=== PATIENT | female | born 1940 | race Caucasian/White ===

== ENCOUNTER 2022-03-26 11:30 | Inpatient (IN) | payer MEDICARE, BC ==
[2022-03-26] MEDS ORDERED: Midazolam HCl 2 mg/2 ml Vial ONE (14:33)
[2022-03-26] MEDS ORDERED: Dextrose 5% in Water 1,000 ML IV PRN (17:20)
[2022-03-26] MEDS ORDERED: hydrALAZINE 20 MG/ML VIAL SLOW IVP PRN (17:20)
[2022-03-26] MEDS ORDERED: Dextrose 50% Abboject 50 ML SYRINGE SLOW IVP PRN (17:20)
[2022-03-26] MEDS ORDERED: Ondansetron PF 4 MG/2 ML Vial IVP PRN (17:20)
[2022-03-26] MEDS ORDERED: traMADol HCl 50 MG TAB PO PRN (17:24)
[2022-03-26] MEDS ORDERED: Cyclobenzaprine 10 MG TAB PO PRN (17:24)
[2022-03-26 17:43] LABS: #Basophils 0.1 thou/uL (0.0-0.2); #Eosinphils 0.2 thou/uL (0.0-0.7); #Lymphocytes 2.7 thou/uL (1.20-3.40); #Monocytes 1.1 thou/uL (0.11-0.59); #Neutrophils 7.8 thou/uL (1.40-6.50); %Basophils 0.6 % (0.0-1.0); %Eosinophils 1.5 % (0.0-10.0); %Lymphocytes 22.6 % (21.0-51.0); %Monocytes 9.2 % (0.0-10.0); Hemoglobin 14.5 g/dL (12.0-16.0); Mean Corpuscular HGB CONC 32.3 g/dL (32.0-36.0); Mean Corpuscular Hemoglobin 31.1 pg (27.0-31.0); Mean Corpuscular Volume 96.2 fl (78.0-98.0); Mean Platelet Volume 7.5 fL (7.4-10.4); Platelet Count 283 10x3/uL (130-400); RBC Distribution Width 11.8 % (11.5-14.5); Red Blood Cell (RBC) Count 4.68 mill/uL (4.20-5.40); White Blood Cell (WBC) Count 11.8 10x3/uL (4.8-10.8)
[2022-03-26 18:03] LABS: ALT (SGPT) Less than 7 U/L (8-55); AST (SGOT) 15 U/L (5-34); Albumin 3.5 g/dL (3.4-4.8); Alkaline Phosphatase 76 U/L (40-110); Anion Gap 15 mmol/L (10-20); BUN (Urea Nitrogen) 11 mg/dL (9.8-20.1); Bilirubin, Total 0.6 mg/dL (0.2-1.2); Calc. Creatinine Clearance 0 mL/min (70-130); Calcium 9.1 mg/dL (7.8-10.44); Carbon Dioxide 25 mmol/L (23-31); Chloride 103 mmol/L (98-107); Estimated GFR 88; Globulin 3.7 g/dL (2.4-3.5); Glucose 109 mg/dL (83-110); Magnesium 2.2 mg/dL (1.6-2.6); Phosphorus 3.3 mg/dL (2.3-4.7); Potassium 3.6 mmol/L (3.5-5.1); Protein, Total 7.2 g/dL (5.8-8.1); Sodium 139 mmol/L (136-145)
[2022-03-26] MEDS ORDERED: Haloperidol Lactate 5 MG/ML VIAL IM SCH (18:45)
[2022-03-26] MEDS ORDERED: diphenhydrAMINE 50 MG/ML VIAL IVP SCH (19:15)
[2022-03-26] MEDS: Morphine 2 MG/ML VIAL SLOW IVP PRN ×2 (19:17→19:23)
[2022-03-26] MEDS ORDERED: Metoprolol Tartrate 25 MG TAB PO SCH (21:00)
[2022-03-26] MEDS: Famotidine 20 MG TAB PO SCH (22:37)
[2022-03-26] MEDS: Acetaminophen 500 MG TAB PO SCH (22:37)
[2022-03-26] MEDS: traMADol HCl 50 MG TAB PO SCH (22:37)
[2022-03-26] MEDS: Senokot S 8.6-50 MG TAB PO SCH (22:38)
[2022-03-26] MEDS ORDERED: Ziprasidone 20 MG VIAL IM SCH (22:45)
[2022-03-26] MEDS ORDERED: Sterile Water 10 ML ONE (22:50)
[2022-03-27] MEDS: Acetaminophen 500 MG TAB PO SCH ×5 (01:20→22:56)
[2022-03-27] MEDS: traMADol HCl 50 MG TAB PO SCH ×5 (01:20→22:57)
[2022-03-27] MEDS: Morphine 2 MG/ML VIAL SLOW IVP PRN (02:58)
[2022-03-27] MEDS ORDERED: Sterile Water 10 ML VIAL FS PRN (03:45)
[2022-03-27] MEDS ORDERED: Ziprasidone 20 MG VIAL IM SCH (04:00)
[2022-03-27 05:57] LABS: #Eosinphils 0.1 thou/uL (0.0-0.7); #Lymphocytes 1.7 thou/uL (1.20-3.40); #Monocytes 1.3 thou/uL (0.11-0.59); %Basophils 0.3 % (0.0-1.0); %Eosinophils 0.5 % (0.0-10.0); %Lymphocytes 12.7 % (21.0-51.0); %Monocytes 9.8 % (0.0-10.0); %Neutrophils 76.6 % (42.0-75.0); Hemoglobin 13.8 g/dL (12.0-16.0); Mean Corpuscular HGB CONC 32.8 g/dL (32.0-36.0); Mean Corpuscular Hemoglobin 31.4 pg (27.0-31.0); Mean Corpuscular Volume 95.6 fl (78.0-98.0); Mean Platelet Volume 7.7 fL (7.4-10.4); Platelet Count 292 10x3/uL (130-400); RBC Distribution Width 11.7 % (11.5-14.5); Red Blood Cell (RBC) Count 4.39 mill/uL (4.20-5.40)
[2022-03-27 06:16] LABS: Anion Gap 13 mmol/L (10-20); BUN (Urea Nitrogen) 14 mg/dL (9.8-20.1); Calc. Creatinine Clearance 28 mL/min (70-130); Calcium 9.1 mg/dL (7.8-10.44); Carbon Dioxide 25 mmol/L (23-31); Chloride 103 mmol/L (98-107); Estimated GFR 88; Glucose 169 mg/dL (83-110); Magnesium 2.1 mg/dL (1.6-2.6); Phosphorus 3.2 mg/dL (2.3-4.7); Potassium 3.4 mmol/L (3.5-5.1); Sodium 138 mmol/L (136-145)
[2022-03-27] MEDS ORDERED: fentaNYL PF 100 MCG/2 ML SYRINGE ONE (07:22)
[2022-03-27] MEDS ORDERED: Insulin Regular 300 UNITS/3 ML VIAL SC PRN ×2 (07:48)
[2022-03-27] MEDS ORDERED: Potassium Phosphate 30 MMOL in Sodium Chloride 0.9% 250 ML 250 ML IVPB SCH (08:00)
[2022-03-27] MEDS ORDERED: Levothyroxine Sodium 125 MCG TAB PO SCH (08:00)
[2022-03-27] MEDS ORDERED: Clindamycin/D5W 600 mg/50 ml Premix Bag ONE (08:01)
[2022-03-27] MEDS ORDERED: Ondansetron PF 4 MG/2 ML Vial ONE (08:18)
[2022-03-27] MEDS ORDERED: PROPOFOL 200 MG/20 ML VIAL ONE (08:18)
[2022-03-27] MEDS ORDERED: Lidocaine 1% PF 5 ML VIAL ONE (08:18)
[2022-03-27] MEDS ORDERED: Glycopyrrolate 0.2 MG/ML 5 ML SYRINGE ONE (08:18)
[2022-03-27] MEDS ORDERED: Dexamethasone 20 MG/5 ML VIAL ONE (08:18)
[2022-03-27] MEDS ORDERED: Labetalol HCl 100 MG/20 ML VIAL ONE (08:18)
[2022-03-27] MEDS ORDERED: NEOSTIGMINE 3 MG/3 ML SYR 3 MG/3 ML SYRINGE ONE (08:18)
[2022-03-27] MEDS ORDERED: ePHEDrine 50 MG/ML VIAL ONE (08:18)
[2022-03-27] MEDS ORDERED: Succinylcholine Chloride 100 MG/5 ML SYRINGE FS ONE (08:18)
[2022-03-27] MEDS ORDERED: Rocuronium Bromide 10 MG/ML (10ML VIAL) ONE (08:18)
[2022-03-27] MEDS ORDERED: Ondansetron HCl/PF 4 MG/2 ML Vial IVP PRN (08:56)
[2022-03-27] MEDS ORDERED: Bupivacaine HCl 0.5%/Epinephrine 1:200,000/PF 30 ml Vial ONE (09:09)
[2022-03-27] MEDS ORDERED: TETANUS, DIPHTHERIA TOX,ADULT (TDVAX) 0.5 ML VIAL IM ONE (09:37)
[2022-03-27] MEDS ORDERED: Communication Order-Pharmacy FS SCH (09:45)
[2022-03-27] MEDS: Polyethylene Glycol 3350 17 GM Packet PO SCH (11:54)
[2022-03-27] MEDS: Potassium Chloride 10 MEQ TAB PO SCH ×2 (11:54→17:00)
[2022-03-27] MEDS: Senokot S 8.6-50 MG TAB PO SCH ×2 (11:54→19:43)
[2022-03-27] MEDS: Gabapentin 100 MG CAP PO SCH ×3 (11:55→19:42)
[2022-03-27] MEDS: QUEtiapine 100 MG TAB PO SCH ×2 (11:56→19:43)
[2022-03-27] MEDS: Ketorolac Tromethamine 30 MG/ML VIAL IVP SCH ×3 (12:01→22:58)
[2022-03-27] MEDS: Famotidine 20 MG TAB PO SCH ×2 (13:08→19:43)
[2022-03-27 14:50] LABS: Bacteria/HPF None Seen HPF (None Seen); Bilirubin Negative (Negative); Blood, Urine 1+ (Negative); CAUTI Indications for Culture Alt mental st,lethar; Clarity Clear (Clear); Glucose, Urine (Dipstick) Normal (Negative); Ketone, Urine 20 mg/dL (Negative); Leukocyte Negative Leu/uL (Negative); Nitrite Negative (Negative); Protein, Urine (Dipstick) 10 mg/dL (Neg-Trace); Specific Gravity, Urine 1.021 (1.002-1.036); Squamous Epithelial 0-3 HPF (0-3); Urobilinogen Normal mg/dL (Less than 2); WBC/HPF 0-3 HPF (0-3)
[2022-03-27 14:55] LABS: Urine Culture Reflex No No
[2022-03-27] MEDS: Clindamycin/D5W 600 MG in Premix Bag 1 BAG IVPB SCH ×2 (18:19→22:56)
[2022-03-27] MEDS: traZODone HCl 50 MG TAB PO SCH (19:43)
[2022-03-27] MEDS ORDERED: Aspirin 81 mg Enteric Coated Tablet PO SCH (21:00)
[2022-03-28] MEDS: Acetaminophen 500 MG TAB PO SCH ×5 (01:07→23:34)
[2022-03-28] MEDS: traMADol HCl 50 MG TAB PO SCH ×5 (01:08→23:34)
[2022-03-28] MEDS: Ketorolac Tromethamine 30 MG/ML VIAL IVP SCH (05:12)
[2022-03-28 05:57] LABS: #Lymphocytes 2.4 thou/uL (1.20-3.40); #Monocytes 1.7 thou/uL (0.11-0.59); #Neutrophils 13.3 thou/uL (1.40-6.50); %Basophils 0.1 % (0.0-1.0); %Eosinophils 0.1 % (0.0-10.0); %Lymphocytes 13.6 % (21.0-51.0); %Monocytes 9.9 % (0.0-10.0); %Neutrophils 76.2 % (42.0-75.0); Hemoglobin 12.7 g/dL (12.0-16.0); Mean Corpuscular HGB CONC 32.6 g/dL (32.0-36.0); Mean Corpuscular Hemoglobin 31.3 pg (27.0-31.0); Mean Corpuscular Volume 95.9 fl (78.0-98.0); Mean Platelet Volume 7.8 fL (7.4-10.4); Platelet Count 327 10x3/uL (130-400); RBC Distribution Width 11.7 % (11.5-14.5); Red Blood Cell (RBC) Count 4.05 mill/uL (4.20-5.40); White Blood Cell (WBC) Count 17.5 10x3/uL (4.8-10.8)
[2022-03-28] MEDS: Levothyroxine Sodium 125 MCG TAB PO SCH (05:59)
[2022-03-28 06:53] LABS: Anion Gap 14 mmol/L (10-20); BUN (Urea Nitrogen) 23 mg/dL (9.8-20.1); Calc. Creatinine Clearance 24 mL/min (70-130); Calcium 9.1 mg/dL (7.8-10.44); Carbon Dioxide 25 mmol/L (23-31); Chloride 103 mmol/L (98-107); Estimated GFR 77; Glucose 153 mg/dL (83-110); Magnesium 2.2 mg/dL (1.6-2.6); Phosphorus 4.4 mg/dL (2.3-4.7); Potassium 4.1 mmol/L (3.5-5.1); Sodium 138 mmol/L (136-145)
[2022-03-28] MEDS ORDERED: Non-Formulary Item 1 EACH (Hydrochlorothiazide [Hydrochlorothiazide] 12.5 MG Tablet) PO SCH (09:00)
[2022-03-28] MEDS: Famotidine 20 MG TAB PO SCH (09:43)
[2022-03-28] MEDS: Aspirin 81 mg Enteric Coated Tablet PO SCH ×2 (09:43→21:01)
[2022-03-28] MEDS: Hydrochlorothiazide 25 MG TAB PO SCH (09:43)
[2022-03-28] MEDS: Gabapentin 100 MG CAP PO SCH ×3 (09:44→21:07)
[2022-03-28] MEDS: Polyethylene Glycol 3350 17 GM Packet PO SCH (09:45)
[2022-03-28] MEDS: Potassium Chloride 10 MEQ TAB PO SCH ×2 (09:45→16:27)
[2022-03-28] MEDS: QUEtiapine 100 MG TAB PO SCH ×2 (09:45→21:08)
[2022-03-28] MEDS: Lisinopril 10 MG TAB PO SCH (09:45)
[2022-03-28] MEDS: Senokot S 8.6-50 MG TAB PO SCH ×2 (09:45→21:08)
[2022-03-28] MEDS: traZODone HCl 50 MG TAB PO SCH (21:09)
[2022-03-29 05:42] LABS: #Eosinphils 0.3 thou/uL (0.0-0.7); #Lymphocytes 2.2 thou/uL (1.20-3.40); #Monocytes 1.1 thou/uL (0.11-0.59); #Neutrophils 8.5 thou/uL (1.40-6.50); %Basophils 0.3 % (0.0-1.0); %Eosinophils 2.4 % (0.0-10.0); %Monocytes 8.9 % (0.0-10.0); %Neutrophils 70.4 % (42.0-75.0); Hemoglobin 11.5 g/dL (12.0-16.0); Mean Corpuscular HGB CONC 31.6 g/dL (32.0-36.0); Mean Corpuscular Volume 98.1 fl (78.0-98.0); Mean Platelet Volume 7.5 fL (7.4-10.4); Platelet Count 307 10x3/uL (130-400); RBC Distribution Width 11.8 % (11.5-14.5); Red Blood Cell (RBC) Count 3.71 mill/uL (4.20-5.40); White Blood Cell (WBC) Count 12.1 10x3/uL (4.8-10.8)
[2022-03-29] MEDS: Acetaminophen 500 MG TAB PO SCH ×4 (05:55→23:07)
[2022-03-29] MEDS: Levothyroxine Sodium 125 MCG TAB PO SCH (05:56)
[2022-03-29] MEDS: traMADol HCl 50 MG TAB PO SCH ×4 (05:56→23:07)
[2022-03-29 06:10] LABS: Anion Gap 11 mmol/L (10-20); BUN (Urea Nitrogen) 25 mg/dL (9.8-20.1); Calc. Creatinine Clearance 28 mL/min (70-130); Carbon Dioxide 27 mmol/L (23-31); Chloride 104 mmol/L (98-107); Potassium 3.8 mmol/L (3.5-5.1); Sodium 138 mmol/L (136-145)
[2022-03-29 06:11] LABS: Calcium 8.5 mg/dL (7.8-10.44); Estimated GFR 88; Glucose 154 mg/dL (83-110); Magnesium 2.1 mg/dL (1.6-2.6)
[2022-03-29] MEDS: Senokot S 8.6-50 MG TAB PO SCH ×2 (09:04→21:16)
[2022-03-29] MEDS: Gabapentin 100 MG CAP PO SCH ×3 (09:04→21:16)
[2022-03-29] MEDS: Polyethylene Glycol 3350 17 GM Packet PO SCH (09:04)
[2022-03-29] MEDS: Hydrochlorothiazide 25 MG TAB PO SCH (09:05)
[2022-03-29] MEDS: Potassium Chloride 10 MEQ TAB PO SCH ×2 (09:05→18:03)
[2022-03-29] MEDS: Famotidine 20 MG TAB PO SCH (09:05)
[2022-03-29] MEDS: Aspirin 81 mg Enteric Coated Tablet PO SCH ×2 (09:05→21:16)
[2022-03-29] MEDS: QUEtiapine 100 MG TAB PO SCH ×2 (09:05→21:16)
[2022-03-29] MEDS: Lisinopril 10 MG TAB PO SCH (09:05)
[2022-03-29] MEDS ORDERED: Lactated Ringer's 500 ML IV SCH (17:45)
[2022-03-29] MEDS: traZODone HCl 50 MG TAB PO SCH (21:16)
[2022-03-30] MEDS: Acetaminophen 500 MG TAB PO SCH ×5 (05:31→23:51)
[2022-03-30] MEDS: Levothyroxine Sodium 125 MCG TAB PO SCH (05:31)
[2022-03-30] MEDS: traMADol HCl 50 MG TAB PO SCH ×3 (05:32→18:26)
[2022-03-30] MEDS: Lisinopril 10 MG TAB PO SCH (10:14)
[2022-03-30] MEDS: Senokot S 8.6-50 MG TAB PO SCH ×2 (10:14→21:25)
[2022-03-30] MEDS: QUEtiapine 100 MG TAB PO SCH ×2 (10:15→21:25)
[2022-03-30] MEDS: Hydrochlorothiazide 25 MG TAB PO SCH (10:16)
[2022-03-30] MEDS: Gabapentin 100 MG CAP PO SCH ×3 (10:16→21:25)
[2022-03-30] MEDS: Potassium Chloride 10 MEQ TAB PO SCH ×2 (10:17→18:22)
[2022-03-30] MEDS: Famotidine 20 MG TAB PO SCH (10:17)
[2022-03-30] MEDS: Aspirin 81 mg Enteric Coated Tablet PO SCH ×2 (10:17→21:25)
[2022-03-30] MEDS: Polyethylene Glycol 3350 17 GM Packet PO SCH (12:28)
[2022-03-30] MEDS ORDERED: Acetaminophen/Codeine 30-300mg Tablet PO PRN (17:36)
[2022-03-30] MEDS: Acetaminophen/Codeine 30-300mg Tablet PO SCH ×2 (18:21→23:52)
[2022-03-30] MEDS: traZODone HCl 50 MG TAB PO SCH (21:25)
[2022-03-31] MEDS: Acetaminophen 500 MG TAB PO SCH ×3 (06:01→18:11)
[2022-03-31] MEDS: Acetaminophen/Codeine 30-300mg Tablet PO SCH ×3 (06:02→18:17)
[2022-03-31] MEDS: Levothyroxine Sodium 125 MCG TAB PO SCH (06:02)
[2022-03-31] MEDS: Aspirin 81 mg Enteric Coated Tablet PO SCH ×2 (08:07→20:52)
[2022-03-31] MEDS: Hydrochlorothiazide 25 MG TAB PO SCH (08:07)
[2022-03-31] MEDS: Senokot S 8.6-50 MG TAB PO SCH ×2 (08:07→20:51)
[2022-03-31] MEDS: Famotidine 20 MG TAB PO SCH (08:07)
[2022-03-31] MEDS: Gabapentin 100 MG CAP PO SCH ×3 (08:07→20:51)
[2022-03-31] MEDS: Lisinopril 10 MG TAB PO SCH (08:07)
[2022-03-31] MEDS: Potassium Chloride 10 MEQ TAB PO SCH ×2 (08:08→18:11)
[2022-03-31] MEDS: QUEtiapine 100 MG TAB PO SCH ×2 (08:08→20:52)
[2022-03-31] MEDS: Polyethylene Glycol 3350 17 GM Packet PO SCH (10:06)
[2022-03-31] MEDS: traZODone HCl 50 MG TAB PO SCH (20:51)
[2022-04-01] MEDS: Acetaminophen 500 MG TAB PO SCH ×3 (01:44→13:48)
[2022-04-01] MEDS: Acetaminophen/Codeine 30-300mg Tablet PO SCH ×3 (01:45→13:48)
[2022-04-01] MEDS: Levothyroxine Sodium 125 MCG TAB PO SCH (06:41)
[2022-04-01] MEDS: Famotidine 20 MG TAB PO SCH (08:51)
[2022-04-01] MEDS: Hydrochlorothiazide 25 MG TAB PO SCH (08:51)
[2022-04-01] MEDS: QUEtiapine 100 MG TAB PO SCH (08:51)
[2022-04-01] MEDS: Potassium Chloride 10 MEQ TAB PO SCH (08:52)
[2022-04-01] MEDS: Aspirin 81 mg Enteric Coated Tablet PO SCH (08:52)
[2022-04-01] MEDS: Gabapentin 100 MG CAP PO SCH ×2 (08:52→15:43)
[2022-04-01] MEDS: Lisinopril 10 MG TAB PO SCH (08:52)
[2022-04-01] MEDS: Senokot S 8.6-50 MG TAB PO SCH (08:54)
[2022-04-01] MEDS: Polyethylene Glycol 3350 17 GM Packet PO SCH (08:54)
[2022-04-01 09:24] VITALS: TEMP 98.3
[2022-04-01] MEDS ORDERED: Lisinopril 10 MG TAB PO SCH ×3 (11:41→12:15)
[2022-04-01 13:46] VITALS: BP 142/72
[2022-04-02] MEDS ORDERED: Lisinopril 10 MG TAB PO SCH (09:00)
== END 2022-04-01 16:35 | DRG 481 ==
LOC: ERS 11:30 → SJJU 16:53 → SURG A 19:08
PROVIDERS: ADMIT Surgery; ATTEND Surgery
PROC: 0QS604Z Reposition Right Upper Femur with Internal Fixation Device, Open Approach (ICD-10-PCS; principal; 2022-03-27)
DX: S72.011A Unspecified intracapsular fracture of right femur, initial encounter for closed fracture (principal); F02.811 Dementia in other diseases classified elsewhere, unspecified severity, with agitation; Z20.822 Contact with and (suspected) exposure to COVID-19; G30.9 Alzheimer's disease, unspecified; E03.9 Hypothyroidism, unspecified; K21.9 Gastro-esophageal reflux disease without esophagitis; I10 Essential (primary) hypertension; Z66 Do not resuscitate; G47.00 Insomnia, unspecified; E78.5 Hyperlipidemia, unspecified; W18.30XA Fall on same level, unspecified, initial encounter; E11.9 Type 2 diabetes mellitus without complications; G89.29 Other chronic pain; E87.6 Hypokalemia; F41.9 Anxiety disorder, unspecified; Z79.890 Hormone replacement therapy; Z88.0 Allergy status to penicillin; Z88.2 Allergy status to sulfonamides; Z79.84 Long term (current) use of oral hypoglycemic drugs; Z79.899 Other long term (current) drug therapy; Y92.129 Unspecified place in nursing home as the place of occurrence of the external cause
CPT/HCPCS: 36415; 36416; 71045; 72170; 72192; 80048; 80053; 81001; 83735; 84100; 85025; 93005; 96374; C1713; C1769; G0390; J1100; J1200; J1630; J1815; J1885; J2250; J2272; J2405; J2704; J3486; J3490; J7050; J7120; U0003; U0005

== ENCOUNTER 2022-04-15 10:29 | Outpatient (CLI) | payer MEDICARE, BC ==
[2022-04-15 11:39] LABS: Hemoglobin 12.1 g/dL (12.0-15.5); Mean Corpuscular HGB CONC 32.6 g/dL (32.0-36.0); Mean Corpuscular Hemoglobin 31.9 pg (27.0-33.0); Mean Corpuscular Volume 97.9 fl (81.6-98.3); Mean Platelet Volume 9.7 fl (7.4-10.4); Platelet Count 389 10x3/uL (150-450); RBC Distribution Width 13.2 % (11.5-14.5); Red Blood Cell (RBC) Count 3.79 10x6/uL (3.90-5.03); White Blood Cell (WBC) Count 12.2 10x3/uL (3.5-10.5)
[2022-04-15 11:53] LABS: Prothrombin Time 10.6 sec (9.5-12.1)
[2022-04-15 11:54] LABS: Anion Gap 14 mmol/L (10-20); BUN (Urea Nitrogen) 21 mg/dL (9.8-20.1); Calc. Creatinine Clearance 0 mL/min (70-130); Calcium 9.3 mg/dL (7.8-10.44); Carbon Dioxide 29 mmol/L (23-31); Chloride 99 mmol/L (98-107); Estimated GFR 89; Glucose 126 mg/dL (83-110); Potassium 3.8 mmol/L (3.5-5.1); Sodium 138 mmol/L (136-145)
== END 2022-04-15 10:30 | disposition home or self-care (01) ==
LOC: LABBT 10:29
PROVIDERS: ATTEND Orthopaedic Surgery
DX: Z01.818 Encounter for other preprocedural examination (principal)
CPT/HCPCS: 80048; 85027; 85610; 87081; 93005; 93010

== ENCOUNTER 2022-05-03 06:59 | Inpatient (IN) | payer MEDICARE, BC ==
[2022-05-02 09:41] VITALS: BMI 24.4
[2022-05-03] MEDS ORDERED: Neomycin-Polymyxin 1 ML AMP ONE (11:50)
[2022-05-03 12:03] LABS: SARS-CoV-2 NAA Rapid Test Not Detected (NotDetected)
[2022-05-03] MEDS ORDERED: Clindamycin/D5W 900 mg/50 ml Premix Bag ONE (12:19)
[2022-05-03] MEDS ORDERED: fentaNYL PF 100 MCG/2 ML SYRINGE ONE (12:20)
[2022-05-03] MEDS ORDERED: Ondansetron HCl/PF 4 MG/2 ML Vial IVP PRN (12:39)
[2022-05-03] MEDS ORDERED: Promethazine HCl 25 MG/ML VIAL IM PRN (12:39)
[2022-05-03] MEDS ORDERED: ePHEDrine 50 MG/ML VIAL ONE (12:50)
[2022-05-03] MEDS ORDERED: NEOSTIGMINE 3 MG/3 ML SYR 3 MG/3 ML SYRINGE ONE (12:50)
[2022-05-03] MEDS ORDERED: Rocuronium Bromide 10 MG/ML (10ML VIAL) ONE (12:50)
[2022-05-03] MEDS ORDERED: Glycopyrrolate 0.2 MG/ML 5 ML SYRINGE ONE (12:50)
[2022-05-03] MEDS ORDERED: Ondansetron PF 4 MG/2 ML Vial ONE (12:50)
[2022-05-03] MEDS ORDERED: PROPOFOL 200 MG/20 ML VIAL ONE (12:50)
[2022-05-03] MEDS ORDERED: Dexamethasone 20 MG/5 ML VIAL ONE (12:50)
[2022-05-03] MEDS ORDERED: Tranexamic Acid 1,000 MG/10 ML VIAL ONE (12:53)
[2022-05-03] MEDS ORDERED: Bupivacaine HCl 0.5%/Epinephrine 1:200,000/PF 30 ml Vial ONE (13:49)
[2022-05-03] MEDS ORDERED: Milk Of Magnesia 30 ML UDCUP PO PRN (14:06)
[2022-05-03] MEDS ORDERED: Bisacodyl 10 MG SUPP PR PRN (14:06)
[2022-05-03] MEDS ORDERED: Ondansetron ODT 4 MG TAB PO PRN (14:06)
[2022-05-03] MEDS ORDERED: Ondansetron PF 4 MG/2 ML Vial IVP PRN (14:06)
[2022-05-03] MEDS ORDERED: Cepastat Lozenges 1 LOZ PO PRN (14:06)
[2022-05-03] MEDS ORDERED: traMADol HCl 50 MG TAB PO PRN (14:06)
[2022-05-03] MEDS ORDERED: Fentanyl 100 MCG/2 ML VIAL ONE (14:52)
[2022-05-03] MEDS: traZODone HCl 50 MG TAB PO SCH ×2 (18:14→20:13)
[2022-05-03] MEDS: Gabapentin 100 MG CAP PO SCH (18:14)
[2022-05-03] MEDS: Ketorolac Tromethamine 30 MG/ML VIAL IM SCH (18:22)
[2022-05-03] MEDS: Clindamycin/D5W 900 MG in Premix Bag 1 BAG IVPB SCH (18:22)
[2022-05-03] MEDS: Aspirin 325 MG TAB PO SCH (20:13)
[2022-05-03] MEDS: QUEtiapine 100 MG TAB PO SCH (20:14)
[2022-05-03] MEDS: Famotidine 20 MG TAB PO SCH (20:30)
[2022-05-03] MEDS: Divalproex Sodium DR 500 MG TAB PO SCH (20:31)
[2022-05-03] MEDS: Senokot S 8.6-50 MG TAB PO SCH (20:32)
[2022-05-03] MEDS ORDERED: metFORMIN XR 500 MG TAB PO SCH (21:00)
[2022-05-03] MEDS ORDERED: Sodium Chloride 0.9% 500 ML IV SCH (23:45)
[2022-05-04 00:23] LABS: Hemoglobin 9.5 g/dL (12.0-16.0); Mean Corpuscular HGB CONC 32.9 g/dL (32.0-36.0); Mean Corpuscular Hemoglobin 32.9 pg (27.0-31.0); Platelet Count 360 10x3/uL (130-400); RBC Distribution Width 12.9 % (11.5-14.5); Red Blood Cell (RBC) Count 2.88 mill/uL (4.20-5.40); White Blood Cell (WBC) Count 27.6 10x3/uL (4.8-10.8)
[2022-05-04] MEDS ORDERED: Acetaminophen 650 MG Suppository PR PRN (00:24)
[2022-05-04] MEDS ORDERED: Acetaminophen 325 MG TAB PO PRN (00:24)
[2022-05-04] MEDS: Clindamycin/D5W 900 MG in Premix Bag 1 BAG IVPB SCH (00:28)
[2022-05-04] MEDS: Ketorolac Tromethamine 30 MG/ML VIAL IM SCH ×4 (00:28→17:31)
[2022-05-04 00:29] LABS: ALT (SGPT) 21 U/L (8-55); AST (SGOT) 29 U/L (5-34); Albumin 2.3 g/dL (3.4-4.8); Alkaline Phosphatase 94 U/L (40-110); Anion Gap 14 mmol/L (10-20); BUN (Urea Nitrogen) 21 mg/dL (9.8-20.1); Bilirubin, Total 0.7 mg/dL (0.2-1.2); Calc. Creatinine Clearance 50 mL/min (70-130); Calcium 8.2 mg/dL (7.8-10.44); Carbon Dioxide 27 mmol/L (23-31); Chloride 102 mmol/L (98-107); Estimated GFR 76; Globulin 2.7 g/dL (2.4-3.5); Glucose 168 mg/dL (83-110); Magnesium 1.7 mg/dL (1.6-2.6); Potassium 4.4 mmol/L (3.5-5.1); Sodium 139 mmol/L (136-145)
[2022-05-04 00:40] LABS: Band 24 % (5-11); Hypochromia SLIGHT = 6-15 cells (100X) (0-5/hpf); Lymphocytes 5 % (21-51); MDiff Complete? YES; Macrocytosis SLIGHT = 6-15 cells (100X) (0-5/hpf); Monocytes 6 % (0-10); Neutrophil 63 % (42-75); Platelet Morphology Comment Appears Adequate; Reactive Lymphocytes 2 % (0-10)
[2022-05-04] MEDS ORDERED: Dextrose 5% in Water 1,000 ML IV PRN (00:49)
[2022-05-04] MEDS ORDERED: HumaLOG 300 UNITS/3 ML VIAL SC PRN ×2 (00:49)
[2022-05-04] MEDS ORDERED: Dextrose 50% Abboject 50 ML SYRINGE SLOW IVP PRN (00:49)
[2022-05-04 01:03] LABS: Hemoglobin A1c 5.7 % (4.0-6.0)
[2022-05-04] MEDS: Sodium Chloride 0.9% 1,000 ML IV SCH ×2 (04:16→17:34)
[2022-05-04] MEDS: Levothyroxine Sodium 125 MCG TAB PO SCH (05:36)
[2022-05-04 07:23] LABS: Hemoglobin 8.6 g/dL (12.0-16.0); Mean Corpuscular HGB CONC 31.6 g/dL (32.0-36.0); Mean Corpuscular Hemoglobin 32.1 pg (27.0-31.0); Mean Platelet Volume 7.5 fL (7.4-10.4); Platelet Count 330 10x3/uL (130-400); Red Blood Cell (RBC) Count 2.68 mill/uL (4.20-5.40); White Blood Cell (WBC) Count 25.1 10x3/uL (4.8-10.8)
[2022-05-04] MEDS: Hydrochlorothiazide 25 MG TAB PO SCH ×2 (09:36→09:45)
[2022-05-04] MEDS: Famotidine 20 MG TAB PO SCH ×2 (09:37→20:32)
[2022-05-04] MEDS: Senokot S 8.6-50 MG TAB PO SCH ×2 (09:37→20:32)
[2022-05-04] MEDS: Gabapentin 100 MG CAP PO SCH ×3 (09:37→15:44)
[2022-05-04] MEDS: Ferrous Gluconate 324 MG TAB PO SCH ×2 (09:37→20:32)
[2022-05-04] MEDS: Aspirin 325 MG TAB PO SCH ×2 (09:37→20:31)
[2022-05-04] MEDS: Divalproex Sodium DR 500 MG TAB PO SCH ×2 (09:38→20:32)
[2022-05-04] MEDS: Multivitamin W/ Minerals 1 TAB PO SCH (09:38)
[2022-05-04] MEDS: QUEtiapine 100 MG TAB PO SCH ×3 (09:38→20:32)
[2022-05-04] MEDS: traZODone HCl 50 MG TAB PO SCH ×4 (09:38→20:31)
[2022-05-05] MEDS: Ketorolac Tromethamine 30 MG/ML VIAL IM SCH ×4 (01:23→17:45)
[2022-05-05 06:17] LABS: Hemoglobin 7.1 g/dL (12.0-16.0); Mean Corpuscular HGB CONC 32.7 g/dL (32.0-36.0); Mean Platelet Volume 7.7 fL (7.4-10.4); Platelet Count 265 10x3/uL (130-400); RBC Distribution Width 13.1 % (11.5-14.5); Red Blood Cell (RBC) Count 2.15 mill/uL (4.20-5.40); White Blood Cell (WBC) Count 13.2 10x3/uL (4.8-10.8)
[2022-05-05] MEDS: Sodium Chloride 0.9% 1,000 ML IV SCH (06:44)
[2022-05-05] MEDS: Levothyroxine Sodium 125 MCG TAB PO SCH (06:44)
[2022-05-05] MEDS: QUEtiapine 100 MG TAB PO SCH ×2 (08:51→21:13)
[2022-05-05] MEDS: Aspirin 325 MG TAB PO SCH ×2 (08:52→21:12)
[2022-05-05] MEDS: Ferrous Gluconate 324 MG TAB PO SCH ×2 (08:52→21:13)
[2022-05-05] MEDS: Famotidine 20 MG TAB PO SCH ×2 (08:52→21:13)
[2022-05-05] MEDS: traZODone HCl 50 MG TAB PO SCH ×3 (08:52→21:13)
[2022-05-05] MEDS: Gabapentin 100 MG CAP PO SCH ×3 (08:52→17:50)
[2022-05-05] MEDS: Senokot S 8.6-50 MG TAB PO SCH ×2 (08:52→21:12)
[2022-05-05] MEDS: Divalproex Sodium DR 500 MG TAB PO SCH ×2 (08:53→23:39)
[2022-05-05] MEDS: Multivitamin W/ Minerals 1 TAB PO SCH (08:53)
[2022-05-05 13:38] LABS: Hemoglobin 7.4 g/dL (12.0-16.0)
[2022-05-05] MEDS ORDERED: Divalproex Sodium 125 mg Sprinkle Capsule PO SCH (23:15)
[2022-05-06 05:30] LABS: Hemoglobin 8.3 g/dL (12.0-16.0); Mean Corpuscular HGB CONC 32.2 g/dL (32.0-36.0); Mean Corpuscular Volume 96.2 fl (78.0-98.0); Mean Platelet Volume 7.4 fL (7.4-10.4); Platelet Count 261 10x3/uL (130-400); RBC Distribution Width 15.8 % (11.5-14.5); Red Blood Cell (RBC) Count 2.68 mill/uL (4.20-5.40); White Blood Cell (WBC) Count 10.7 10x3/uL (4.8-10.8)
[2022-05-06] MEDS: Levothyroxine Sodium 125 MCG TAB PO SCH (05:37)
[2022-05-06] MEDS: Sodium Chloride 0.9% 1,000 ML IV SCH (07:24)
[2022-05-06] MEDS ORDERED: Divalproex Sodium 125 mg Sprinkle Capsule PO SCH (09:00)
[2022-05-06] MEDS: Ferrous Gluconate 324 MG TAB PO SCH (09:46)
[2022-05-06] MEDS: Senokot S 8.6-50 MG TAB PO SCH (09:46)
[2022-05-06] MEDS: traZODone HCl 50 MG TAB PO SCH (09:48)
[2022-05-06] MEDS: Multivitamin W/ Minerals 1 TAB PO SCH (09:48)
[2022-05-06] MEDS: Famotidine 20 MG TAB PO SCH (09:48)
[2022-05-06] MEDS: QUEtiapine 100 MG TAB PO SCH (09:48)
[2022-05-06] MEDS: Aspirin 325 MG TAB PO SCH (09:48)
[2022-05-06] MEDS: Gabapentin 100 MG CAP PO SCH ×2 (09:48→13:07)
[2022-05-06 11:53] VITALS: BP 136/68; TEMP 98.2
[2022-05-06] MEDS ORDERED: MENTHOL TOP PRN (12:51)
[2022-05-06] MEDS ORDERED: Docusate 100 MG CAP PO PRN (12:51)
[2022-05-06] MEDS ORDERED: Bisacodyl 5 MG TAB PO PRN (12:51)
[2022-05-06] MEDS ORDERED: Acetaminophen/Codeine 30-300mg Tablet PO PRN (12:51)
[2022-05-06] MEDS ORDERED: Potassium Chloride 10 MEQ TAB PO SCH (21:00)
[2022-05-06] MEDS ORDERED: Aspirin 325 mg Enteric Coated Tablet PO SCH (21:00)
[2022-05-06] MEDS ORDERED: Non-Formulary Item 1 EACH (Fluvoxamine Maleate [Fluvoxamine Maleate] 50 MG Tablet) PO SCH (21:00)
[2022-05-07] MEDS ORDERED: FLU VACC QS2022-23(65YR UP)/PF 240 MCG/0.7 ML SYRINGE IM ONE (03:30)
[2022-05-07] MEDS ORDERED: Polyethylene Glycol 3350 17 GM Packet PO SCH (09:00)
== END 2022-05-06 14:23 | DRG 469 ==
LOC: EDSTATUS 06:59 → SURG A 10:15
PROVIDERS: ADMIT Orthopaedic Surgery; ATTEND Orthopaedic Surgery
PROC: 0SRR0JA Replacement of Right Hip Joint, Femoral Surface with Synthetic Substitute, Uncemented, Open Approach (ICD-10-PCS; principal; 2022-05-03)
PROC: 0QP604Z Removal of Internal Fixation Device from Right Upper Femur, Open Approach (ICD-10-PCS; 2022-05-03)
PROC: 30233N1 Transfusion of Nonautologous Red Blood Cells into Peripheral Vein, Percutaneous Approach (ICD-10-PCS; 2022-05-05)
DX: T84.194A Other mechanical complication of internal fixation device of right femur, initial encounter (principal); S72.041A Displaced fracture of base of neck of right femur, initial encounter for closed fracture; D62 Acute posthemorrhagic anemia; Y83.1 Surgical operation with implant of artificial internal device as the cause of abnormal reaction of the patient, or of later complication, without mention of misadventure at the time of the procedure; I95.89 Other hypotension; E03.9 Hypothyroidism, unspecified; E78.5 Hyperlipidemia, unspecified; K21.9 Gastro-esophageal reflux disease without esophagitis; E87.6 Hypokalemia; E11.9 Type 2 diabetes mellitus without complications; F41.9 Anxiety disorder, unspecified; F31.9 Bipolar disorder, unspecified; G47.00 Insomnia, unspecified; G89.29 Other chronic pain; G30.9 Alzheimer's disease, unspecified; F02.C0 Dementia in other diseases classified elsewhere, severe, without behavioral disturbance, psychotic disturbance, mood disturbance, and anxiety; R33.9 Retention of urine, unspecified; Z88.0 Allergy status to penicillin; Z88.2 Allergy status to sulfonamides; Z79.899 Other long term (current) drug therapy; Z79.82 Long term (current) use of aspirin; Z98.890 Other specified postprocedural states; Z79.84 Long term (current) use of oral hypoglycemic drugs; Z79.890 Hormone replacement therapy
CPT/HCPCS: 36415; 36416; 36430; 80053; 83036; 83735; 83880; 84439; 84443; 85025; 85027; 86850; 86900; 86901; 86921; 93005; 93010; C1713; C1776; J1100; J1885; J2405; J2704; J3010; J3490; J7030; J7050; P9016; U0002